=== PATIENT | female | born 1965 | race Caucasian/White ===

== ENCOUNTER 2017-09-09 08:30 | Day surgery (SDC) | payer OTHER ==
[2017-09-08 16:08] LABS: BASOPHILS % (AUTO) 0.6 % (0.0-2.0); EOSINOPHILS # (AUTO) 0.3 K/uL (0.0-0.4); EOSINOPHILS % (AUTO) 3.5 % (0.0-4.0); HEMATOCRIT 39.2 % (36-48); LYMPHOCYTES # (AUTO) 1.4 K/uL (1.0-5.5); LYMPHOCYTES % (AUTO) 18.1 % (20.5-51.5); MEAN CORPUSCULAR HEMOGLOBIN 30 pg (27-31); MEAN CORPUSCULAR HGB CONC 33 % (32-36); MEAN CORPUSCULAR VOLUME 90 fL (79.0-98.0); MONOCYTES # (AUTO) 0.6 K/uL (0.0-1.0); MONOCYTES % (AUTO) 7.7 % (1.7-9.3); NEUTROPHILS # (AUTO) 5.5 K/uL (1.8-7.7); NEUTROPHILS % (AUTO) 70.1 % (40.0-70.0); PLATELET COUNT (AUTO) 322 K/uL (130-430); RED BLOOD CELL COUNT(AUTO) 4.34 MIL/uL (4.2-6.2); RED CELL DISTRIBUTION WIDTH 15.2 % (9.0-15.0); WHITE BLOOD COUNT (AUTO) 7.8 K/uL (4.8-10.8)
[2017-09-08 16:18] LABS: BILIRUBIN,URINE NEGATIVE (NEGATIVE); BLOOD, URINE 1+ (NEGATIVE); CLARITY/URINE CLEAR (CLEAR); COLOR,URINE YELLOW (YELLOW); GLUCOSE,URINE NEGATIVE (NEGATIVE); KETONES,URINE NEGATIVE (NEGATIVE); LEUKOCYTE ESTERASE ,URINE NEGATIVE (NEGATIVE); NITRITE, URINE NEGATIVE (NEGATIVE); PROTEIN URINE NEGATIVE (NEGATIVE); UROBILINOGEN,URINE 0.2 (0.2-1.0)
[2017-09-08 16:30] LABS: INR 0.9 (0.8-1.2); PROTHROMBIN TIME 9.2 SECS (9.5-12.5)
[2017-09-08 16:41] LABS: ALBUMIN 3.5 g/dL (3.4-4.8); CALCIUM 8.4 mg/dL (8.4-11.0); CREATININE 0.69 mg/dL (0.55-1.30); POTASSIUM 3.5 mmol/L (3.5-5.1); TOTAL BILIRUBIN 0.3 mg/dL (0.0-1.0)
[2017-09-08 17:01] LABS: BACTERIA,URINE FEW /HPF (None Seen)
[2017-09-08 17:02] LABS: MUCUS,URINE None Seen /LPF (None Seen)
[~2017-09-09] VITALS: Ht 154.9 cm; Wt 68.0 kg
[~2017-09-09 08:30] MED LIST: CEFAZOLIN 2 GM IVPB PREMIX 50 ML IV ONE
[2017-09-09] MEDS ORDERED: D5LR 1,000 ML IV SCH (10:09)
[2017-09-09] MEDS ORDERED: ZOLPIDEM TARTRATE 5 MG TABLET PO PRN (10:15)
[2017-09-09] MEDS ORDERED: LR 1,000 ML IV SCH (12:47)
[2017-09-09] MEDS ORDERED: METOCLOPRAMIDE HCL 10 MG/2 ML VIAL IVP PRN (13:00)
[2017-09-09] MEDS ORDERED: MORPHINE 4 MG/ML INJ. SYRINGE IVP PRN ×3 (13:00)
[2017-09-09] MEDS ORDERED: MIDAZOLAM HCL 5 MG/ML VIAL (VERSED) IV ONE (13:15)
[2017-09-09] MEDS ORDERED: NS 1000 ML BAG IV ONE (13:15)
[2017-09-09] MEDS ORDERED: NS IRRIG SOLN 5000 ML IR ONE (13:15)
[2017-09-09] MEDS ORDERED: KETOROLAC TROMETHAMINE 30 MG VIAL ONE (13:15)
[2017-09-09] MEDS ORDERED: PHENYLEPHRINE HCL 10 MG/ML VIAL (NEOSYNEPHRINE) ONE (13:15)
[2017-09-09] MEDS ORDERED: PROPOFOL 200MG/ 20ML VIAL (DIPRIVAN) IV ONE (13:15)
[2017-09-09] MEDS ORDERED: fentaNYL CITRATE/PF 100 MCG/2 ML AMP ONE (13:15)
[2017-09-09] MEDS ORDERED: SEVOFLURANE 15 MIN GAS INH ONE (13:15)
[2017-09-09] MEDS ORDERED: IBUPROFEN 800 MG TABLET PO PRN (13:30)
[2017-09-09] MEDS ORDERED: PROMETHAZINE HCL 25 MG/ML AMP IM PRN (13:30)
[2017-09-09] MEDS ORDERED: CEFAZOLIN 1 GM IVPB PREMIX 50 ML IV SCH (14:00)
[2017-09-09 15:09] VITALS: BP_SYST 146
[2017-09-09] MEDS ORDERED: HYDROCHLOROTHIAZIDE 12.5 MG CAPSULE (HCTZ) PO SCH (21:00)
[2017-09-09] MEDS ORDERED: LOSARTAN POTASSIUM 50 MG TABLET (COZAAR) PO SCH (21:00)
[2017-09-10] MEDS ORDERED: ESTRADIOL PATCH TD SCH (09:00)
[2017-09-10] MEDS ORDERED: buPROPion HCL 150 MG XL TAB PO SCH (09:00)
[2017-09-10] MEDS ORDERED: FLUoxetine HCL 20 MG CAPSULE (PROzac) PO SCH (09:00)
== END 2017-09-09 14:40 | disposition home or self-care (01) ==
LOC: SDS 08:30 → SMU 09:55 → SDS 14:40
PROVIDERS: ATTEND Obstetrics & Gynecology Gynecology
DX: N85.01 Benign endometrial hyperplasia (principal); D64.9 Anemia, unspecified; Z98.51 Tubal ligation status; Z98.890 Other specified postprocedural states; Z79.899 Other long term (current) drug therapy; F41.9 Anxiety disorder, unspecified; F17.210 Nicotine dependence, cigarettes, uncomplicated; Z88.8 Allergy status to other drugs, medicaments and biological substances; Z83.3 Family history of diabetes mellitus; Z80.0 Family history of malignant neoplasm of digestive organs; Z82.49 Family history of ischemic heart disease and other diseases of the circulatory system
CPT/HCPCS: 36415; 58558; 71046; 80053; 81000; 84703; 85025; 85610; 85730; 86886; 86900; 86901; 87086; 88305; 93005; C1819; J0690; J1885; J2250; J2370; J2704; J3010; J7030